=== PATIENT | male | born 1980 | race Caucasian/White ===

== ENCOUNTER 2023-03-01 08:06 | Day surgery (SDC) | payer BC ==
[~2023-03-01 08:06] MED LIST: Sodium Chloride 0.9% 1,000 ML IV SCH; Sodium Chloride 0.9% 10 ML Syringe FLUSH PRN
[2023-03-01] MEDS ORDERED: Midazolam 1 MG/ML 2 ML SDV ONE (08:52)
[2023-03-01] MEDS ORDERED: Propofol 200 MG/20 ML SDV ONE (08:52)
== END 2023-03-01 10:29 | disposition home or self-care (01) ==
LOC: KA.SDS 08:06
PROVIDERS: ATTEND Surgery
DX: Z12.11 Encounter for screening for malignant neoplasm of colon (principal); D12.3 Benign neoplasm of transverse colon; I10 Essential (primary) hypertension; R73.03 Prediabetes; E66.9 Obesity, unspecified; Z68.43 Body mass index [BMI] 50.0-59.9, adult; Z80.0 Family history of malignant neoplasm of digestive organs; Z79.899 Other long term (current) drug therapy; Z79.84 Long term (current) use of oral hypoglycemic drugs
CPT/HCPCS: 45385; 82947; J2250; J2704; J7030